=== PATIENT | male | born 2000 | race Caucasian/White ===

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

== ENCOUNTER 2019-03-14 10:27 | Emergency (ER) | payer MEDICAID ==
[2019-03-14] MEDS ORDERED: Ketorolac 60 MG/2 ML SDV IM ONE (11:17)
[2019-03-14] MEDS ORDERED: Acetaminophen/HYDROcodone 325-5 MG Tab PO ONE (11:18)
--- NOTE | 2019-03-14 11:21 | EDM.PDOC ---
ED HPI GENERAL MEDICAL PROBLEM - General Chief Complaint: ENT Problem Stated Complaint: TOP TEETH PAIN ON THE LEFT AND RIGHT SIDE Time Seen by Provider: 03/14/19 11:18 Source of Information: Reports: Patient History Limitations: Reports: No Limitations - History of Present Illness INITIAL COMMENTS - FREE TEXT/NARRATIVE: pt has increased tooth pain. He was scheduled with oral surgery to have 7 teeth extracted. He had to cancel because he losr his insurance. He got his insurance back 2 weeks ago and has not rescheduled. Onset: Gradual, Other (last few days pain has gotten worse. ) Duration: Hour(s): Location: Reports: Face Associated Symptoms: Reports: No Other Symptoms Right Jaw Pain Score (Numeric/FACES): 8 - Related Data Allergies Allergy/AdvReac Type Severity Reaction Status Date / Time No Known Allergies Allergy Verified 03/14/19 10:37 Home Meds: Home Meds NK [No Known Home Meds] 09/24/18 [History] Past Medical History - Past Health History Medical/Surgical History: Denies Medical/Surgical History Musculoskeletal History: Reports: Fracture Other Musculoskeletal History: r hand Neurological History: Reports: Concussion Psychiatric History: Reports: Anxiety, Depression - Past Surgical History HEENT Surgical History: Reports: Other (See Below) Other HEENT Surgeries/Procedures: sinus surgery Social & Family History - Family History Family Medical History: Noncontributory - Tobacco Use Smoking Status *Q: Current Every Day Smoker Years of Tobacco use: 4 Packs/Tins Daily: 0.5 - Caffeine Use Caffeine Use: Reports: Soda Caffeine Use Comment: coffee and soda a few times a week - Recreational Drug Use Recreational Drug Use: Yes Recreational Drug Type: Reports: Marijuana/Hashish Recreational Drug Use Frequency: Rarely - Living Situation & Occupation Living situation: Reports: with Family (lives with Girlfriend and daughter) ED ROS ENT - Review of Systems Review Of Systems: See Below Constitutional: Reports: No Symptoms HEENT: Reports: Dental Pain Respiratory: Reports: No Symptoms Cardiovascular: Reports: No Symptoms Endocrine: Reports: No Symptoms GI/Abdominal: Reports: No Symptoms : Reports: No Symptoms Musculoskeletal: Reports: No Symptoms Skin: Reports: No Symptoms ED EXAM, ENT - Physical Exam Exam: See Below Text/Narrative:: pt is here with sig dental pain both on the rt and the left. He was scheduled to have 7 teeth removed. He canceled because his insurance was not enforced. Exam Limited By: No Limitations General Appearance: Alert, Anxious, Moderate Distress Ears: Normal TMs Nose: Normal Inspection Mouth/Throat: Other (pt has multiple carrious teeth) Head: Atraumatic Neck: Normal Inspection Respiratory/Chest: No Respiratory Distress Course - Vital Signs Last Recorded V/S: Last Vital Signs Temp 35.8 C 03/14/19 10:38 Pulse 60 03/14/19 10:49 Resp 16 03/14/19 10:49 BP 136/92 H 03/14/19 10:49 Pulse Ox 100 03/14/19 10:49 - Orders/Labs/Meds Meds: Medications Discontinued Medications Generic Name Dose Route Start Last Admin Trade Name Freq PRN Reason Stop Dose Admin Hydrocodone Bitart/Acetaminophen 1 tab 03/14/19 11:18 Roxie 325-5 Mg PO 03/14/19 11:19 ONETIME ONE Ketorolac Tromethamine 60 mg 03/14/19 11:17 Toradol IM 03/14/19 11:18 ONETIME ONE Departure - Departure Time of Disposition: 11:19 Disposition: Home, Self-Care 01 Condition: Fair Clinical Impression: Infected tooth - Discharge Information Referrals: PCP,None [Primary Care Provider] - Forms: ED Department Discharge Care Plan Goals: call oral surgery he was previosly scheduled with Dr Morris. He was previosly scheduled with him. amoxicillin 500mg tid, tramodol 50 mg q6h prn for pain. Sepsis Event Note - Evaluation Sepsis Screening Result: No Definite Risk - Focused Exam Vital Signs: Vital Signs Temp Pulse Resp BP Pulse Ox 03/14/19 10:49 60 16 136/92 H 100 03/14/19 10:38 35.8 C 62 16 184/121 H 100 Date Exam was Performed: 03/14/19 Time Exam was Performed: 11:25
== END 2019-03-14 12:00 | disposition home or self-care (01) ==
LOC: JP.ED 10:27
DX: K04.7 Periapical abscess without sinus (principal); F17.210 Nicotine dependence, cigarettes, uncomplicated
CPT/HCPCS: 96372; 99282; A9270; J1885

== ENCOUNTER 2020-05-14 23:16 | Emergency (ER) | payer MEDICAID ==
--- NOTE | 2020-05-15 00:02 | EDM.PDOC ---
ED HPI GENERAL MEDICAL PROBLEM - General Chief Complaint: ENT Problem Stated Complaint: TOOTHACH, RIGHT SIDE Time Seen by Provider: 05/14/20 23:45 Source of Information: Reports: Patient History Limitations: Reports: No Limitations - History of Present Illness INITIAL COMMENTS - FREE TEXT/NARRATIVE: 19-year-old male with chronic dental pain, arrives with molar pain on the right mandibular jaw. Pain has been present for 2 days. Last year he had "7 teeth pulled" and they were supposed to pull the molar as well but did not. What he got for pain control last time worked, he said it was a "strong Tylenol". He has no fevers or chills, no significant facial swelling. Onset: Gradual Duration: Day(s): (2 days of symptoms) Associated Symptoms: Reports: No Other Symptoms Right Jaw Pain Score (Numeric/FACES): 9 - Related Data Allergies Allergy/AdvReac Type Severity Reaction Status Date / Time No Known Allergies Allergy Verified 05/14/20 23:40 Home Meds: Home Meds NK [No Known Home Meds] 09/24/18 [History] Past Medical History - Past Health History Medical/Surgical History: Denies Medical/Surgical History Musculoskeletal History: Reports: Fracture Other Musculoskeletal History: r hand Neurological History: Reports: Concussion Psychiatric History: Reports: Anxiety, Depression - Past Surgical History HEENT Surgical History: Reports: Other (See Below) Other HEENT Surgeries/Procedures: sinus surgery Social & Family History - Family History Family Medical History: No Pertinent Family History - Tobacco Use Tobacco Use Status *Q: Current Every Day Tobacco User Years of Tobacco use: 5 Packs/Tins Daily: 0.5 - Caffeine Use Caffeine Use: Reports: Coffee, Energy Drinks, Soda, Tea Caffeine Use Comment: coffee and soda a few times a week - Alcohol Use Date of Last Drink: 03/09/21 - Recreational Drug Use Recreational Drug Use: Yes Recreational Drug Type: Reports: Marijuana/Hashish - Living Situation & Occupation Living situation: Reports: with Family (lives with Girlfriend and daughter) ED ROS ENT - Review of Systems Review Of Systems: See Below Constitutional: Denies: Fever, Chills HEENT: Denies: Throat Pain Respiratory: Denies: Shortness of Breath, Cough Cardiovascular: Denies: Chest Pain GI/Abdominal: Denies: Nausea, Vomiting Skin: Denies: Erythema Neurological: Reports: Headache (Some pain radiating up into the right side of the head causing a mild headache) ED EXAM, ENT - Physical Exam Exam: See Below Exam Limited By: No Limitations General Appearance: Alert, No Apparent Distress (Looks uncomfortable but not distressed) Mouth/Throat: Other (The right second molar does look like it has decay around the base but no significant inflammation. Increased pain with percussion of the tooth.) Head: Atraumatic Neck: No: Lymphadenopathy (R), Lymphadenopathy (L) Respiratory/Chest: No Respiratory Distress Neurological: Alert, Oriented Course - Vital Signs Last Recorded V/S: Last Vital Signs Temp 96.8 F L 05/14/20 23:38 Pulse 77 05/14/20 23:38 Resp 16 05/14/20 23:38 BP 142/93 H 05/14/20 23:38 Pulse Ox 99 05/14/20 23:38 - Re-Assessments/Exams Free Text/Narrative Re-Assessment/Exam: 05/15/20 00:01 Patient was placed on Pen-Vee K 500 mg 4 times a day and given 15 tramadol for extra pain control. He should also continue with anti-inflammatories, and contact his dentist as soon as possible. Departure - Departure Time of Disposition: 00:12 Disposition: Home, Self-Care 01 Clinical Impression: Abscess, dental - Discharge Information Instructions: Dental Abscess, [id number] Referrals: PCP,None [Primary Care Provider] - Forms: ED Department Discharge Care Plan Goals: Take antibiotic 4 times a day until you are able to see your dentist. Continue with ibuprofen or an anti-inflammatory and add tramadol for extra pain control if needed. Sepsis Event Note (ED) - Evaluation Sepsis Screening Result: No Definite Risk - Focused Exam Vital Signs: Vital Signs Temp Pulse Resp BP Pulse Ox 05/14/20 23:38 96.8 F L 77 16 142/93 H 99
== END 2020-05-15 00:13 | disposition home or self-care (01) ==
LOC: JP.ED 23:16
DX: K04.7 Periapical abscess without sinus (principal); Z72.0 Tobacco use
CPT/HCPCS: 99282; 99283

== ENCOUNTER 2020-05-16 19:24 | Emergency (ER) | payer MEDICAID ==
--- NOTE | 2020-05-16 19:38 | EDM.PDOC ---
ED HPI GENERAL MEDICAL PROBLEM - General Chief Complaint: ENT Problem Stated Complaint: TOOTH PAIN Time Seen by Provider: 05/16/20 19:35 Source of Information: Reports: Patient History Limitations: Reports: No Limitations - History of Present Illness INITIAL COMMENTS - FREE TEXT/NARRATIVE: Kylee is a 19-year-old male presenting to the ED for dental pain. He reports he was seen in the emergency room here on 05/14/2020 and started on penicillin and tramadol. They did put a referral in for him to see a dentist, however, the dentist here did not feel that he could adequately take care of this problem, told him to take Tylenol for pain, and referred the patient to dentistry in [place] which the patient will not be able to be seen until next month. He is here today because of adequate pain control on Tylenol. tooth Pain Score (Numeric/FACES): 8 - Related Data Allergies Allergy/AdvReac Type Severity Reaction Status Date / Time No Known Allergies Allergy Verified 05/14/20 23:40 Home Meds: Home Meds Diclofenac Sodium [Voltaren] 75 mg PO BIDMEALS #20 tab.cr 05/16/20 [Rx] Penicillin V Potassium 500 mg PO QID 05/16/20 [History] Past Medical History - Past Health History Medical/Surgical History: Denies Medical/Surgical History Musculoskeletal History: Reports: Fracture Other Musculoskeletal History: r hand Neurological History: Reports: Concussion Psychiatric History: Reports: Anxiety, Depression - Past Surgical History HEENT Surgical History: Reports: Other (See Below) Other HEENT Surgeries/Procedures: sinus surgery Social & Family History - Family History Family Medical History: No Pertinent Family History - Caffeine Use Caffeine Use: Reports: Coffee, Energy Drinks, Soda, Tea Caffeine Use Comment: coffee and soda a few times a week - Living Situation & Occupation Living situation: Reports: with Family (lives with Girlfriend and daughter) ED ROS ENT - Review of Systems Review Of Systems: See Below Constitutional: Reports: No Symptoms HEENT: Reports: Dental Pain Respiratory: Reports: No Symptoms Cardiovascular: Reports: No Symptoms Endocrine: Reports: No Symptoms GI/Abdominal: Reports: No Symptoms : Reports: No Symptoms Musculoskeletal: Reports: No Symptoms Skin: Reports: No Symptoms Neurological: Reports: No Symptoms Psychiatric: Reports: No Symptoms Hematologic/Lymphatic: Reports: No Symptoms Immunologic: Reports: No Symptoms ED EXAM, ENT - Physical Exam Exam: See Below Exam Limited By: No Limitations General Appearance: Alert, Anxious, Moderate Distress Mouth/Throat: Normal Lips, Normal Oropharynx, Dental Abcess (Tooth #31 is inflamed with gingival swelling and tenderness. Tooth #30 and 32 are absent.), Dental Pain. No: Hoarse Voice, Muffled Voice Head: Atraumatic, Normocephalic Neck: Normal Inspection, Supple, Non-Tender, Full Range of Motion, Lymphadenopathy (R). No: Lymphadenopathy (L) Respiratory/Chest: No Respiratory Distress, Lungs Clear, Normal Breath Sounds Neurological: Alert, Oriented, Normal Cognition, No Motor/Sensory Deficits Psychiatric: Normal Affect, Normal Mood Course - Vital Signs Last Recorded V/S: Last Vital Signs Temp 36.8 C 05/16/20 19:39 Pulse 91 05/16/20 19:39 Resp 16 05/16/20 19:39 BP 147/66 H 05/16/20 19:39 Pulse Ox 97 05/16/20 19:39 - Re-Assessments/Exams Free Text/Narrative Re-Assessment/Exam: 05/16/20 19:59 the patient is currently on penicillin for this infected tooth. We will put him on diclofenac 75 mg twice daily with meals for his baseline pain management I have given him an additional prescription for tramadol 50 mg 1 every 6 as needed for moderate to severe pain 15 tablets. Indications to return to the ED were discussed he was discharged in satisfactory condition. Departure - Departure Time of Disposition: 19:56 Disposition: Home, Self-Care 01 Condition: Fair Clinical Impression: Abscess, dental - Discharge Information *PRESCRIPTION DRUG MONITORING PROGRAM REVIEWED*: Yes *COPY OF PRESCRIPTION DRUG MONITORING REPORT IN PATIENT YUNI: No Instructions: Dental Abscess, [id number] Referrals: PCP,None [Primary Care Provider] - Forms: ED Department Discharge Care Plan Goals: Please use the tramadol for severe pain only. You have 15 tablets that will need to last you until we get ahead of this infection. In addition to this I have prescribed diclofenac which is a much stronger nonnarcotic pain medicine that you should use twice daily and then use the tramadol just for breakthrough pain. Do not take ibuprofen while taking the diclofenac. Sepsis Event Note (ED) - Focused Exam Vital Signs: Vital Signs Temp Pulse Resp BP Pulse Ox 05/16/20 19:39 36.8 C 91 16 147/66 H 97 05/16/20 19:33 36.8 C 91 16 147/66 H 97 - Problem List & Annotations (1) Abscess, dental SNOMED Code(s): 308476671 Code(s): K04.7 - PERIAPICAL ABSCESS WITHOUT SINUS Status: Acute Priority: Medium Current Visit: Yes - Problem List Review Problem List Initiated/Reviewed/Updated: Yes
== END 2020-05-16 20:07 | disposition home or self-care (01) ==
LOC: JP.ED 19:24
DX: K04.7 Periapical abscess without sinus (principal)
CPT/HCPCS: 99282

== ENCOUNTER 2022-03-28 02:10 | Emergency (ER) | payer MEDICAID | END 2022-03-28 02:55 | LOC: JP.ED 02:10 | DX: F10.920 Alcohol use, unspecified with intoxication, uncomplicated (principal); F17.210 Nicotine dependence, cigarettes, uncomplicated | CPT/HCPCS: 99284 ==

== ENCOUNTER 2022-06-24 21:44 | Emergency (ER) | payer MEDICAID | END 2022-06-24 23:40 | disposition home or self-care (01) | LOC: JP.ED 21:44 | DX: S00.83XA Contusion of other part of head, initial encounter (principal); F10.920 Alcohol use, unspecified with intoxication, uncomplicated; F17.210 Nicotine dependence, cigarettes, uncomplicated; Y04.2XXA Assault by strike against or bumped into by another person, initial encounter | CPT/HCPCS: 36415; 70450; 70486; 80048; 80307; 85025; 99283 ==

== ENCOUNTER 2022-06-26 22:37 | Emergency (ER) | payer MEDICAID ==
[2022-06-26] MEDS ORDERED: HYDROmorphone 0.5 MG/0.5 ML Syringe IM ONE (23:01)
[2022-06-26 23:45] LABS: ESTIMATED GFR 80 mL/min (>60)
[2022-06-27] MEDS ORDERED: Bacitracin Oint 1 GM U/D Packet TOP ONE (00:15)
== END 2022-06-27 00:48 | disposition home or self-care (01) ==
LOC: JP.ED 22:37
DX: S20.212A Contusion of left front wall of thorax, initial encounter (principal); S60.511A Abrasion of right hand, initial encounter; S00.512A Abrasion of oral cavity, initial encounter; S80.212A Abrasion, left knee, initial encounter; S99.921A Unspecified injury of right foot, initial encounter; S50.312A Abrasion of left elbow, initial encounter; F17.210 Nicotine dependence, cigarettes, uncomplicated; Y04.0XXA Assault by unarmed brawl or fight, initial encounter; Y92.212 Middle school as the place of occurrence of the external cause
CPT/HCPCS: 36415; 70450; 71101; 72070; 72110; 80053; 80305; 80307; 81001; 85025; 96372; 99283; 99285; J1170